=== PATIENT | female | born 1955 | race Caucasian/White ===

== ENCOUNTER 2018-01-10 05:59 | Day surgery (SDC) | payer BC ==
[2018-01-10] MEDS ORDERED: DIPRIVAN 200 MG/20 ML IV ONE (06:00)
[2018-01-10] MEDS ORDERED: Lactated Ringers 1,000 ML IV SCH (07:00)
--- NOTE | 2018-01-10 08:55 | OP ---
SURGERY DATE/TIME: 01/10/2018 0751 PREOPERATIVE DIAGNOSIS: Screening exam. History of colon polyps. POSTOPERATIVE DIAGNOSIS: Small polyp in the sigmoid colon and mild sigmoid diverticulosis. PROCEDURE: Colonoscopy. SURGEON: Dr. Ibarra. ANESTHESIA: MAC. Medications given by anesthesia department. HISTORY: The patient is a 62 year-old white female presenting now for her third colonoscopy. She had one when she was younger that showed several polyps that were removed. She had a second one later for abdominal pain which they diagnosed her with diverticulosis but no polyps. She presents now 13 years later for screening colonoscopy. The patient was appraised of the risks of the procedure including the risk of perforation, phlebitis, untoward reaction to medication, bleeding and missed lesions. The patient verbalized her understanding and desired to have the procedure performed. DESCRIPTION OF PROCEDURE: The patient was given the medications by the anesthesia department. She had continuous pulse oximetry, ECG monitoring, intermittent blood pressure monitoring and tidal CO2 monitoring during the examination. She was placed in the left lateral decubitus position. A digital rectal examination was performed and revealed normal anal sphincter tone and no masses. The flexible Olympus pediatric colonoscope was used to intubate the rectum. A view of the colon was developed sequentially to the cecum. Upon insertion and withdrawal, there was noted scattered sigmoid diverticula. There was also noted approximately 0.5 cm sessile polyp in the sigmoid colon which was removed using cold biopsy forceps. The scope was removed from the patient who tolerated the procedure well and was sent back to OP recovery in good condition. The prep was noted to be fair to good.
[2018-01-10 09:12] VITALS: BP 125/68; PULSE 70; O2SAT 98
== END 2018-01-10 09:25 | disposition home or self-care (01) ==
LOC: SDC 05:59
PROVIDERS: ATTEND Family Medicine
DX: Z12.11 Encounter for screening for malignant neoplasm of colon (principal); Z86.010 Personal history of colon polyps; K63.5 Polyp of colon; K57.30 Diverticulosis of large intestine without perforation or abscess without bleeding
CPT/HCPCS: 88305; J2704

== ENCOUNTER 2024-09-03 05:47 | Day surgery (SDC) | payer MEDICARE ==
[2024-09-03] MEDS: Lactated Ringers 1,000 ML IV SCH (06:16)
[2024-09-03 06:19] VITALS: RESP 16
[2024-09-03 06:38] LABS: ANION GAP 12.1 MEQ/L (5-15); Calcium 9.7 mg/dL (8.4-10.2); Creatinine 1 0.91 mg/dL (0.52-1.04); EST GLOMERULAR FILTRATION RATE 67.5 ML/MIN; Potassium 3.5 mmol/L (3.5-5.1)
[2024-09-03] MEDS ORDERED: propofoL IV ONE ×3 (07:06→07:37)
[2024-09-03 08:25] VITALS: BP 109/69; PULSE 65; O2SAT 95
[2024-09-03 08:43] VITALS: TEMP 97.6
--- NOTE | 2024-09-04 14:42 | OP ---
SURGERY DATE/TIME: 09/03/2024 9982-0033 PREOPERATIVE DIAGNOSES: 1) Screening colonoscopy. 2) Previous history of colon polyps. POSTOPERATIVE DIAGNOSES: 1) Normal colon. 2) Diverticulosis. PROCEDURE PERFORMED: Colonoscopy. SURGEON: Ladarius Valverde MD ANESTHESIA: MAC by Sid Schwarz CRNA. ESTIMATED BLOOD LOSS: None. SPECIMENS: None. DESCRIPTION OF PROCEDURE AND FINDINGS: After informed written consent was obtained, the patient was taken to the endoscopy suite. She was placed in the left lateral decubitus position and anesthesia was titrated to the desired level of consciousness. Digital rectal exam showed normal sphincter tone and no internal lesions, she does have some external hemorrhoids. Scope was inserted into the rectum and sequentially the entire colonic mucosa was traversed. The level of the cecum was reached and verified with direct visualization of the ileocecal valve. Upon withdrawal, careful mucosal inspection revealed scattered diverticula throughout most of the length of the colon but no other mucosal abnormalities. Prior to withdrawal, retroflexion showed no internal lesions. Scope was removed. Patient was transferred to the recovery room in good condition.
== END 2024-09-03 08:36 | disposition home or self-care (01) ==
LOC: SDC 05:47
PROVIDERS: ATTEND Family Medicine
DX: Z12.11 Encounter for screening for malignant neoplasm of colon (principal); Z09 Encounter for follow-up examination after completed treatment for conditions other than malignant neoplasm; Z86.0100 Personal history of colon polyps, unspecified; K57.30 Diverticulosis of large intestine without perforation or abscess without bleeding; I10 Essential (primary) hypertension; K64.4 Residual hemorrhoidal skin tags
CPT/HCPCS: 36415; 80048; 93005; G0121; J2704